=== PATIENT | male | born 1935 | race Caucasian/White ===

== ENCOUNTER 2021-01-21 20:41 | Inpatient (IN) | payer MEDICARE ==
[2021-01-21 21:41] LABS: Bilirubin Negative (Negative); Blood, Urine Trace (Negative); Clarity Clear (Clear); Glucose, Urine (Dipstick) Negative (Negative); Ketone, Urine Trace mg/dL (Negative); Leukocyte Negative (Negative); Nitrite Negative (Negative); Protein, Urine (Dipstick) Trace mg/dL (Neg-Trace); Urobilinogen 0.2 mg/dL (Less than 2); pH, Urine 5.5 (5.0-9.0)
[2021-01-21 21:42] LABS: #Lymphocytes 0.2 thou/uL (1.20-3.40); #Monocytes 0.2 thou/uL (0.11-0.59); #Neutrophils 12.1 thou/uL (1.40-6.50); %Basophils 0.3 % (0.0-1.0); %Eosinophils 0.1 % (0.0-10.0); %Lymphocytes 1.7 % (21.0-51.0); %Monocytes 1.9 % (0.0-10.0); Hemoglobin 15.4 g/dL (14.0-18.0); Mean Corpuscular HGB CONC 35.1 g/dL (32.0-36.0); Mean Corpuscular Hemoglobin 36.4 pg (27.0-31.0); Platelet Count 160 thou/uL (130-400); RBC Distribution Width 12.8 % (11.5-14.5); Red Blood Cell (RBC) Count 4.23 mill/uL (4.70-6.10); White Blood Cell (WBC) Count 12.6 thou/uL (4.8-10.8)
[2021-01-21 21:44] LABS: ALT (SGPT) 62 U/L (8-55); AST (SGOT) 90 U/L (5-34); Albumin 3.8 g/dL (3.4-4.8); Alkaline Phosphatase 87 U/L (40-110); Anion Gap 18 mmol/L (10-20); BUN (Urea Nitrogen) 18 mg/dL (8.4-25.7); Bilirubin, Total 0.8 mg/dL (0.2-1.2); Calc. Creatinine Clearance 0 mL/min (70-130); Carbon Dioxide 18 mmol/L (23-31); Chloride 108 mmol/L (98-107); Glucose 98 mg/dL (83-110); Potassium 3.5 mmol/L (3.5-5.1); Protein, Total 6.8 g/dL (5.8-8.1); Sodium 140 mmol/L (136-145)
[2021-01-21 21:53] LABS: Base Excess-Venous -2.8 mmol/L (-2.0 to 3.0); Bicarbonate (HCO3v) 20.1 mmol/L (22.0-28.0); CO2 Tension (PvCO2) 29.8 mmHg (42.0-51.0); Calcium, Ionized 1.12 mmol/L (1.15-1.33); Chloride 106 mmol/L (98-107); Hemoglobin - Calc 14.8 g/dL (14.0-18.0); Potassium 3.4 mmol/L (3.5-5.1); Sodium 140 mmol/L (138-145); T. Carbon Dioxide 21.1 mmol/L (22.0-28.0); vO2 Saturation-calc 96.2 % (60.0-85.0)
[2021-01-21] MEDS ORDERED: cefTRIAXone\\ROCEPHIN 2 GM VIAL ONE (21:54)
[2021-01-21] MEDS ORDERED: Sodium Chloride 0.9% 100 ML ONE (21:54)
[2021-01-21] MEDS ORDERED: Sodium Chloride 0.9% 1,000 ML ONE (21:57)
[2021-01-21 22:10] LABS: Bacteria/HPF None Seen HPF (None Seen); RBC/HPF 0-3 HPF (0-3); Squamous Epithelial 0-3 HPF (0-3); WBC/HPF None Seen HPF (0-3)
[2021-01-21 22:12] LABS: MDiff Complete? YES; Macrocytosis SLIGHT = 6-15 cells (100X) (0-5/hpf)
[2021-01-21] MEDS ORDERED: Azithromycin 250 MG TAB ONE (23:20)
[2021-01-21 23:21] LABS: SARS-CoV-2 NAA Rapid Test Not Detected (NotDetected)
[2021-01-21 23:59] VITALS: BMI 26.5
[2021-01-22 00:13] LABS: Lactic Acid 1.2 mmol/L (0.5-2.2)
[2021-01-22] MEDS ORDERED: Ondansetron PF 4 MG/2 ML Vial IVP PRN (00:45)
[2021-01-22] MEDS ORDERED: Acetaminophen 325 MG TAB PO PRN (00:45)
[2021-01-22] MEDS ORDERED: HYDROcodone/Acetaminophen 5/325 mg Tablet PO PRN ×2 (00:45)
[2021-01-22] MEDS ORDERED: Ondansetron ODT 4 MG TAB SL PRN (00:45)
[2021-01-22] MEDS: Dextrose 5 %-0.45 % NaCl 1,000 ML IV SCH ×3 (01:48→17:04)
[2021-01-22] MEDS ORDERED: Warfarin Sodium 5 MG TAB PO SCH ×2 (07:30→17:00)
[2021-01-22] MEDS ORDERED: Acetaminophen 500 MG TAB PO PRN (07:35)
[2021-01-22] MEDS ORDERED: Loperamide HCl 2 MG CAP PO PRN (07:35)
[2021-01-22] MEDS: Amlodipine 10 MG TAB PO SCH (08:53)
[2021-01-22] MEDS: Azithromycin 250 MG TAB PO SCH (08:54)
[2021-01-22] MEDS: Lisinopril 10 MG TAB PO SCH (08:54)
[2021-01-22] MEDS ORDERED: WARFARIN SODIUM 10 MG PO SCH (09:00)
[2021-01-22 10:33] LABS: INR-International Normal Ratio 2.1; Prothrombin Time 23.3 sec (12.0-14.7)
[2021-01-22 10:42] LABS: ALT (SGPT) 58 U/L (8-55); AST (SGOT) 59 U/L (5-34); Albumin 3.1 g/dL (3.4-4.8); Alkaline Phosphatase 55 U/L (40-110); Anion Gap 12 mmol/L (10-20); BUN (Urea Nitrogen) 17 mg/dL (8.4-25.7); Calc. Creatinine Clearance 67 mL/min (70-130); Calcium 8.1 mg/dL (7.8-10.44); Carbon Dioxide 22 mmol/L (23-31); Chloride 109 mmol/L (98-107); Globulin 2.4 g/dL (2.4-3.5); Glucose 123 mg/dL (83-110); Potassium 3.8 mmol/L (3.5-5.1); Protein, Total 5.5 g/dL (5.8-8.1); Sodium 139 mmol/L (136-145)
[2021-01-22 10:50] LABS: #Lymphocytes 0.5 thou/uL (1.20-3.40); #Monocytes 0.8 thou/uL (0.11-0.59); #Neutrophils 11.5 thou/uL (1.40-6.50); %Basophils 0.2 % (0.0-1.0); %Eosinophils 0.1 % (0.0-10.0); %Monocytes 6.2 % (0.0-10.0); %Neutrophils 89.5 % (42.0-75.0); Hemoglobin 12.7 g/dL (14.0-18.0); Mean Corpuscular HGB CONC 35.1 g/dL (32.0-36.0); Mean Corpuscular Hemoglobin 36.3 pg (27.0-31.0); Mean Platelet Volume 7.9 fL (7.4-10.4); Platelet Count 112 thou/uL (130-400); RBC Distribution Width 12.8 % (11.5-14.5); Red Blood Cell (RBC) Count 3.51 mill/uL (4.70-6.10); White Blood Cell (WBC) Count 12.8 thou/uL (4.8-10.8)
[2021-01-22 10:59] LABS: MDiff Complete? YES; Macrocytosis SLIGHT = 6-15 cells (100X) (0-5/hpf); Platelet Morphology Comment Appears Decreased
[2021-01-22] MEDS: Brimonidine Tartrate 0.2% Ophth Soln 5 ml Bottle EA EYE SCH ×2 (15:02→20:22)
[2021-01-22] MEDS: Timolol 0.5% Ophth Soln 5 ml Bottle R EYE SCH (20:11)
[2021-01-22] MEDS: Warfarin Sodium 5 MG TAB PO SCH (20:12)
[2021-01-22] MEDS: cefTRIAXone\\ROCEPHIN 1 GM in Sodium Chloride 0.9% 100 ML IVPB SCH (20:18)
[2021-01-22] MEDS: Dorzolamide HCl 2% Ophth Soln 10 ml Bottle R EYE SCH (20:19)
[2021-01-23] MEDS: Dextrose 5 %-0.45 % NaCl 1,000 ML IV SCH ×2 (03:08→11:06)
[2021-01-23 05:50] LABS: INR-International Normal Ratio 1.8; Prothrombin Time 20.8 sec (12.0-14.7)
[2021-01-23 06:53] LABS: Band 3 % (5-11); Eosinophils 1 % (0-10); Hemoglobin 12.9 g/dL (14.0-18.0); Lymphocytes 12 % (21-51); MDiff Complete? YES; Mean Corpuscular HGB CONC 35.3 g/dL (32.0-36.0); Mean Corpuscular Hemoglobin 36.6 pg (27.0-31.0); Mean Platelet Volume 7.5 fL (7.4-10.4); Monocytes 3 % (0-10); Neutrophil 81 % (42-75); Platelet Count 97 thou/uL (130-400); Platelet Morphology Comment Appears Decreased; RBC Distribution Width 12.4 % (11.5-14.5); Red Blood Cell (RBC) Count 3.53 mill/uL (4.70-6.10); White Blood Cell (WBC) Count 7.9 thou/uL (4.8-10.8)
[2021-01-23] MEDS: Brimonidine Tartrate 0.2% Ophth Soln 5 ml Bottle EA EYE SCH ×3 (08:39→20:38)
[2021-01-23] MEDS: Amlodipine 10 MG TAB PO SCH (08:39)
[2021-01-23] MEDS: Azithromycin 250 MG TAB PO SCH (08:39)
[2021-01-23] MEDS: Fluticasone Propionate Nasal Spray 16 gm Bottle NASAL SCH (08:40)
[2021-01-23] MEDS: Loratadine 10 MG TAB PO SCH (08:40)
[2021-01-23] MEDS: Lisinopril 10 MG TAB PO SCH (08:40)
[2021-01-23] MEDS: Dorzolamide HCl 2% Ophth Soln 10 ml Bottle R EYE SCH ×2 (08:42→20:36)
[2021-01-23] MEDS: Timolol 0.5% Ophth Soln 5 ml Bottle R EYE SCH ×2 (08:43→20:34)
[2021-01-23] MEDS ORDERED: Warfarin Sodium 5 MG TAB PO SCH (17:00)
[2021-01-23] MEDS: cefTRIAXone\\ROCEPHIN 1 GM in Sodium Chloride 0.9% 100 ML IVPB SCH (20:34)
[2021-01-23] MEDS: Warfarin Sodium 5 MG TAB PO SCH (20:35)
[2021-01-24 05:57] LABS: INR-International Normal Ratio 1.4; Prothrombin Time 17.4 sec (12.0-14.7)
[2021-01-24] MEDS: Brimonidine Tartrate 0.2% Ophth Soln 5 ml Bottle EA EYE SCH (08:34)
[2021-01-24] MEDS: Fluticasone Propionate Nasal Spray 16 gm Bottle NASAL SCH (08:35)
[2021-01-24] MEDS: Amlodipine 10 MG TAB PO SCH (08:36)
[2021-01-24] MEDS: Azithromycin 250 MG TAB PO SCH (08:36)
[2021-01-24] MEDS: Loratadine 10 MG TAB PO SCH (08:36)
[2021-01-24] MEDS: Lisinopril 10 MG TAB PO SCH (08:36)
[2021-01-24] MEDS: Timolol 0.5% Ophth Soln 5 ml Bottle R EYE SCH (08:38)
[2021-01-24] MEDS: Dorzolamide HCl 2% Ophth Soln 10 ml Bottle R EYE SCH (08:39)
[2021-01-24 13:43] VITALS: BP 117/77; TEMP 98
[2021-01-24] MEDS ORDERED: Warfarin Sodium 3 MG TAB PO SCH (21:00)
[2021-01-25] MEDS ORDERED: Cefdinir 300 MG CAP PO SCH ×2 (08:00→21:00)
[2021-01-25] MEDS ORDERED: FLU VACC QS2021-22(65YR UP)/PF 240 MCG/0.7 ML SYRINGE IM ONE (09:45)
== END 2021-01-24 13:40 | disposition home or self-care (01) | DRG 195 ==
LOC: BURERS 20:41 → BURMED 22:52
PROVIDERS: ADMIT Family Medicine; ATTEND Family Medicine
DX: J18.9 Pneumonia, unspecified organism (principal); I48.91 Unspecified atrial fibrillation; I10 Essential (primary) hypertension; Z20.822 Contact with and (suspected) exposure to COVID-19; M10.9 Gout, unspecified; Z95.0 Presence of cardiac pacemaker; Z98.890 Other specified postprocedural states
CPT/HCPCS: 36415; 71045; 80053; 81003; 81015; 82330; 82803; 83605; 83880; 84484; 85014; 85025; 85610; 87040; 87086; 87804; 93005; 94760; 96365; J0696; J3490; J7042; J7050; J7620; U0002

== ENCOUNTER 2021-08-06 11:54 | Emergency (ER) | payer MEDICARE ==
[2021-08-06] MEDS ORDERED: cefTRIAXone\\ROCEPHIN 1 GM VIAL ONE (12:58)
[2021-08-06] MEDS ORDERED: Sodium Chloride 0.9% 100 ML ONE (12:58)
[2021-08-06 13:03] LABS: Hemoglobin 14.7 g/dL (14.0-18.0); Mean Corpuscular Hemoglobin 36.7 pg (27.0-31.0); Mean Platelet Volume 7.4 fL (7.4-10.4); Platelet Count 146 thou/uL (130-400); RBC Distribution Width 13.2 % (11.5-14.5); Red Blood Cell (RBC) Count 3.99 mill/uL (4.70-6.10); White Blood Cell (WBC) Count 11.6 thou/uL (4.8-10.8)
[2021-08-06 13:15] LABS: ALT (SGPT) 44 U/L (8-55); AST (SGOT) 52 U/L (5-34); Albumin 3.7 g/dL (3.4-4.8); Alkaline Phosphatase 65 U/L (40-110); Anion Gap 16 mmol/L (10-20); BUN (Urea Nitrogen) 20 mg/dL (8.4-25.7); Bilirubin, Total 1.4 mg/dL (0.2-1.2); Calc. Creatinine Clearance 0 mL/min (70-130); Calcium 8.6 mg/dL (7.8-10.44); Carbon Dioxide 21 mmol/L (23-31); Chloride 107 mmol/L (98-107); Globulin 2.8 g/dL (2.4-3.5); Glucose 110 mg/dL (83-110); Potassium 3.5 mmol/L (3.5-5.1); Protein, Total 6.5 g/dL (5.8-8.1); Sodium 140 mmol/L (136-145)
[2021-08-06 13:54] LABS: INR-International Normal Ratio 1.7; Prothrombin Time 20.1 sec (12.0-14.7)
[2021-08-06 16:35] LABS: Band 26 % (5-11); Eosinophils 1 % (0-10); Hypersemented Neutrophil SLIGHT; Lymphocytes 4 % (21-51); MDiff Complete? YES; Macrocytosis SLIGHT = 6-15 cells (100X) (0-5/hpf); Neutrophil 68 % (42-75); Ovalocytes SLIGHT = 2-5 cells (100X) (0-1/hpf); Polychromasia SLIGHT = 2-3 cells (100X) (0-2/hpf); Spherocytes SLIGHT = 1-5 cells (100X) (None Seen)
== END 2021-08-06 15:27 | disposition home or self-care (01) ==
LOC: BURERS 11:54
DX: J06.9 Acute upper respiratory infection, unspecified (principal); R06.2 Wheezing; I44.7 Left bundle-branch block, unspecified; I48.91 Unspecified atrial fibrillation; I10 Essential (primary) hypertension; M10.9 Gout, unspecified; Z95.0 Presence of cardiac pacemaker; Z79.01 Long term (current) use of anticoagulants; Z79.899 Other long term (current) drug therapy
CPT/HCPCS: 36415; 71045; 71250; 80053; 83880; 84484; 85025; 85610; 87040; 87804; 93005; 96374; J0696; J3490; J7620